=== PATIENT | female | born 1985 | race Caucasian/White ===

== ENCOUNTER 2022-10-19 09:00 | Emergency (ER) | payer SELFPAY ==
[~2022-10-19] VITALS: Ht 165.1 cm; Wt 65.9 kg
[2022-10-19 09:07] VITALS: BP 136/83; TEMP 98.3
[2022-10-19] MEDS ORDERED: BACTRIM DS 8001 TAB PO (10:22)
[2022-10-19 10:25] VITALS: PULSE 82
== END 2022-10-19 10:25 | disposition home or self-care (01) ==
LOC: COL.ER 09:00
DX: L03.011 Cellulitis of right finger (principal); F17.200 Nicotine dependence, unspecified, uncomplicated; Z88.0 Allergy status to penicillin